=== PATIENT | male | born 1965 | race Two or more races ===

== ENCOUNTER 2022-08-25 15:48 | Inpatient (IN) | payer MEDICARE, OTHER ==
[~2022-08-25] VITALS: Ht 172.7 cm; Wt 93.1 kg
[2022-08-25 03:53] VITALS: BP 109/55
[2022-08-25] MEDS ORDERED: SODIUM CHLORIDE 0.9% 1,000 ML IV ONE (16:00)
[2022-08-25 16:35] LABS: Basophils # (auto) 0.1 10 ^3/uL (0-0.2); Basophils % (auto) 1.4 % (0.0-2.0); Eosinophils # (auto) 0.2 10 ^3/uL (0-0.8); Eosinophils % (auto) 3.1 % (0.0-7.0); Hematocrit 45.6 % (41.0-53.0); Hemoglobin 15.4 g/dL (13.5-17.5); Lymphocytes # (auto) 1.6 10 ^3/uL (0.4-5.4); Lymphocytes % (auto) 26.1 % (10.0-50.0); Mean Corpuscular Hemoglobin 30.2 pg (28.0-32.0); Mean Corpuscular Hgb Conc. 33.8 g/dL (32.0-36.0); Mean Corpuscular Volume 89.4 fL (80.0-100.0); Monocytes # (auto) 0.7 10 ^3/uL (0-1.3); Monocytes % (auto) 11.4 % (0.0-12.0); Neutrophils # (auto) 3.5 10 ^3/uL (1.6-8.6); Nucleated Red Blood Cells % 0.1 %
[2022-08-25] MEDS ORDERED: hydrALAZINE HCL 20 MG/ML VL IV ONE (17:30)
[2022-08-25 17:31] LABS: Albumin 3.8 g/dL (3.4-5.0); Calcium 8.6 mg/dL (8.5-10.1); Potassium 3.7 mmol/L (3.5-5.1)
[2022-08-25 17:34] LABS: BUN/Creatinine Ratio 13.4 (10.0-20.0); Bilirubin, Total 0.3 mg/dL (0.2-1.0); Total Protein 6.6 g/dL (6.4-8.2)
[2022-08-25 18:37] LABS: Urine Bacteria NONE SEEN /hpf (None Seen); Urine Blood Negative /uL (Negative); Urine Specific Gravity 1.017 (1.001-1.035); Urine WBC <1 /hpf (0 - 3)
[2022-08-25] MEDS ORDERED: cloNIDine HCL 0.1 MG TAB PO ONE (19:00)
[2022-08-25] MEDS ORDERED: ASPirin 325 MG TAB PO ONE (21:45)
[2022-08-25] MEDS ORDERED: ACETAMINOPHEN 325 MG TAB PO PRN (21:45)
[2022-08-25] MEDS ORDERED: NITROGLYCERIN 0.4 MG SL TAB SL PRN (21:45)
[2022-08-25] MEDS ORDERED: MORPHINE SULFATE INJ 2 MG/ml SYRG IV PRN (21:45)
[2022-08-25 22:13] LABS: Cholesterol 173 mg/dL (< 200); HDL Cholesterol 51 mg/dL (40-59); LDL Cholesterol 107 mg/dL (< 100); Triglycerides 142 mg/dL (< 150)
[2022-08-25] MEDS: SODIUM CHLORIDE 0.9% 1,000 ML IV SCH (22:48)
[2022-08-25] MEDS: MECLIZINE HCL 25 MG TAB PO PRN (22:50)
[2022-08-25] MEDS: ATORVASTATIN 20 MG TAB PO SCH (22:51)
[2022-08-26] VITALS (7 sets, daily range): BP systolic 109–154; BP diastolic 55–99
[2022-08-26] MEDS ORDERED: HYDR-4902 PO (05:00)
[2022-08-26 06:35] LABS: Basophils # (auto) 0.1 10 ^3/uL (0-0.2); Basophils % (auto) 1.5 % (0.0-2.0); Eosinophils # (auto) 0.2 10 ^3/uL (0-0.8); Eosinophils % (auto) 3.1 % (0.0-7.0); Hematocrit 42.1 % (41.0-53.0); Hemoglobin 14.6 g/dL (13.5-17.5); Lymphocytes # (auto) 1.6 10 ^3/uL (0.4-5.4); Lymphocytes % (auto) 27.3 % (10.0-50.0); Mean Corpuscular Hemoglobin 30.9 pg (28.0-32.0); Mean Corpuscular Hgb Conc. 34.7 g/dL (32.0-36.0); Mean Corpuscular Volume 88.9 fL (80.0-100.0); Monocytes # (auto) 0.6 10 ^3/uL (0-1.3); Monocytes % (auto) 9.6 % (0.0-12.0); Neutrophils # (auto) 3.5 10 ^3/uL (1.6-8.6); Neutrophils % (auto) 58.5 % (37.0-80.0); Nucleated Red Blood Cells % 0.2 %; Red Blood Cells 4.73 10^6/uL (4.5-5.90); Red Cell Distribution Width 13.9 % (11.8-14.3)
[2022-08-26 06:48] LABS: Albumin 3.3 g/dL (3.4-5.0); Calcium 8.3 mg/dL (8.5-10.1); Potassium 3.7 mmol/L (3.5-5.1)
[2022-08-26 06:53] LABS: BUN/Creatinine Ratio 12.4 (10.0-20.0); Bilirubin, Total 0.4 mg/dL (0.2-1.0); Total Protein 6.2 g/dL (6.4-8.2)
[2022-08-26] MEDS: ASPirin 81 mg TAB PO SCH (09:43)
[2022-08-26] MEDS: ENOXAPARIN SOD 40 MG/0.4 ML SYRINGE SC SCH (09:43)
[2022-08-26] MEDS: SODIUM CHLORIDE 0.9% 1,000 ML IV SCH (09:44)
[2022-08-26] MEDS: MECLIZINE HCL 25 MG TAB PO PRN (09:50)
[2022-08-26 12:09] LABS: Alcohol, Urine < 3.0 mg/dL (0-10); Amphetamine Screen, Urine NEGATIVE (NEGATIVE); Barbiturate Scree,Urine NEGATIVE (NEGATIVE); Benzodiazephine Screen, Urine NEGATIVE (NEGATIVE); Cannabinoid Screen, Urine NEGATIVE (NEGATIVE); Cocaine Screen, Urine NEGATIVE (NEGATIVE); Opiate Scree,Urine NEGATIVE (NEGATIVE); Phencyclidine Screen, Urine NEGATIVE (NEGATIVE)
[2022-08-26] MEDS ORDERED: METOPROLOL TARTRATE 50 MG TAB PO ONE (16:30)
[2022-08-26 20:02] LABS: Urine Bacteria NONE SEEN /hpf (None Seen); Urine Blood Negative /uL (Negative); Urine Mucus FEW (None Seen); Urine Specific Gravity 1.017 (1.001-1.035); Urine WBC 1 /hpf (0 - 3)
[2022-08-26] MEDS: METOPROLOL TARTRATE 50 MG TAB PO SCH (23:01)
[2022-08-26] MEDS: ATORVASTATIN 20 MG TAB PO SCH (23:01)
[2022-08-27] VITALS (7 sets, daily range): BP systolic 132–156; BP diastolic 2–93
[2022-08-27] MEDS: SODIUM CHLORIDE 0.9% 1,000 ML IV SCH ×2 (00:22→13:45)
[2022-08-27] MEDS ORDERED: hydrALAZINE HCL 20 MG/ML VL IV PRN (01:45)
[2022-08-27] MEDS: ASPirin 81 mg TAB PO SCH (10:21)
[2022-08-27] MEDS: METOPROLOL TARTRATE 50 MG TAB PO SCH ×2 (10:21→21:56)
[2022-08-27] MEDS: ENOXAPARIN SOD 40 MG/0.4 ML SYRINGE SC SCH (10:21)
[2022-08-27] MEDS: ATORVASTATIN 20 MG TAB PO SCH (21:56)
[2022-08-28] MEDS: SODIUM CHLORIDE 0.9% 1,000 ML IV SCH (03:03)
[2022-08-28 05:00] VITALS: BP 159/86
[2022-08-28 09:00] VITALS: BP 174/102
[2022-08-28 09:05] VITALS: BP 171/104
[2022-08-28] MEDS: ENOXAPARIN SOD 40 MG/0.4 ML SYRINGE SC SCH (09:17)
[2022-08-28] MEDS: ASPirin 81 mg TAB PO SCH (09:17)
[2022-08-28] MEDS: METOPROLOL TARTRATE 50 MG TAB PO SCH (09:18)
[2022-08-28] MEDS ORDERED: ATO40T PO (09:54)
[2022-08-28] MEDS ORDERED: METO-158 PO (09:54)
[2022-08-28 10:30] VITALS: BP 174/102
== END 2022-08-28 11:44 | disposition home or self-care (01) | DRG 305 ==
LOC: EDBD 15:48 → ER 15:48 → TELE 21:43 → TELE-EAST 08-26 03:23 → EAST 08-27 15:49
PROVIDERS: ADMIT Nurse Practitioner Family; ATTEND Family Medicine
DX: I16.0 Hypertensive urgency (principal); E78.00 Pure hypercholesterolemia, unspecified; H81.10 Benign paroxysmal vertigo, unspecified ear; I10 Essential (primary) hypertension; Z91.199 Patient's noncompliance with other medical treatment and regimen due to unspecified reason; Z71.6 Tobacco abuse counseling; Z72.0 Tobacco use; E66.9 Obesity, unspecified; Z68.30 Body mass index [BMI] 30.0-30.9, adult
CPT/HCPCS: 36415; 70450; 70551; 80053; 80061; 80307; 81001; 84443; 84484; 85025; 85379; 93306; 93886; 96361; 96374; 99291; G0378